=== PATIENT | female | born 1940 | race Caucasian/White ===

== ENCOUNTER 2017-04-11 14:01 | Emergency (ER) | payer OTHER, BC ==
[~2017-04-11] VITALS: Ht 165.1 cm; Wt 115.4 kg
[~2017-04-11 14:01] MED LIST: ASPIRIN81 M1 PO; CLOBETASOL PROP59 ML TP; FUROSEMIDE20 MG PO; K-Dur PO; K-TAB10 MEQ PO; KLOR-CON 1010 ME1 PO; LISINOPRIL-HCT1 EAC3 PO; LO-DOSE ASPIRIN81 M1 PO; LOVASTATIN40 MG PO; MEGA BIOTIN10000 MCG PO; METRO CREAM 0.745 GM TP; MULTIVITAMINS1 EAC2; NAPROXEN500 M1 PO; NEXIUM40 MG PO; PERCOCET 5/31 TABLET PO; PREMARIN0.3 MG PO; THERA TEARS30 ML BOTH EYES; Tears Naturale II,Ar BOTH EYES; ZOVIRAX 5% TP; ZOVIRAX OINTMEN15 GM TP; [UNRECOGNIZED DRUG - CODE] PO
[2017-04-11 14:07] VITALS: BP 138/68
[2017-04-11] MEDS ORDERED: NORCO 5/3251 TABLET PO (16:25)
[2017-04-11] MEDS ORDERED: LIDODERM 5% P1 PATCH TD (16:25)
[2017-04-11] MEDS ORDERED: FLEXERIL10 MG PO (16:25)
== END 2017-04-11 16:52 | disposition home or self-care (01) ==
LOC: EME 14:01
DX: M47.22 Other spondylosis with radiculopathy, cervical region (principal); I10 Essential (primary) hypertension; E78.00 Pure hypercholesterolemia, unspecified; Z79.82 Long term (current) use of aspirin
CPT/HCPCS: 72040; 99281; 99283; J1100

== ENCOUNTER → 2017-04-26 | Outpatient (CLI) | payer OTHER, BC ==
[~2017-04-26] MED LIST changes: +FLEXERIL10 MG PO; +LIDODERM 5% P1 PATCH TD; +NORCO 5/3251 TABLET PO
== END | disposition home or self-care (01) ==
DX: M17.11 Unilateral primary osteoarthritis, right knee (principal); R26.2 Difficulty in walking, not elsewhere classified; M25.561 Pain in right knee; M25.661 Stiffness of right knee, not elsewhere classified; M62.81 Muscle weakness (generalized)
CPT/HCPCS: 97110 GP; 97150 GO; 97161 GP; 97165 GO; G8978 GP; G8979 GP; G8980 GP; G8987 GO; G8988 GO; G8989 GO

== ENCOUNTER 2017-05-15 22:05 | Inpatient (IN) | payer OTHER, BC ==
[~2017-05-15] VITALS: Ht 165.1 cm; Wt 113.5 kg
[~2017-05-15 22:05] MED LIST changes: +DAILY MULTIPLE1 EACH PO; +ESTRADIOL0.5 MG PO; +IRON325 M1 PO; +METHOCARBAMOL500 MG PO; -MULTIVITAMINS1 EAC2; +TYLENOL EXTRA500 MG PO; +VOLTAREN 1% GE100 GM TP
[2017-05-16 09:26] VITALS: BP 127/58
[2017-05-16 14:49] LABS: HEMATOCRIT 28.3 % (36.0-46.0); MCH 28.2 PG (29.0-34.0); MCHC 32.9 G/DL (30.0-36.0); MCV 85.8 FL (83-99); PLATELET COUNT 324 K/uL (156-360); RBC DIS.WIDTH-SD 40.5 % (39-53); WHITE BLOOD COUNT 9.6 K/uL (4.1-10.2)
[2017-05-16 16:42] VITALS: BP 120/59
[2017-05-16 19:19] VITALS: BP 127/72
[2017-05-16 20:35] VITALS: BP 124/58
[2017-05-17 00:30] VITALS: BP 131/63
[2017-05-17 04:30] VITALS: BP 127/62
[2017-05-17 06:09] LABS: HEMATOCRIT 28.2 % (36.0-46.0); MCV 86.2 FL (83-99)
[2017-05-17 06:35] LABS: ANION GAP 10 MEQ/L (2-14); CHLORIDE 104 MEQ/L (99-109); GFR ESTIMATE (CALCULATED) 43 mL/min/; GLUCOSE 100 mg/dL (70-99); POTASSIUM 3.9 MEQ/L (3.7-5.4); SAMPLE HEMOLYSIS CHECK 0; SAMPLE ICTERIC CHECK 0; SAMPLE LIPEMIA CHECK 0; SODIUM 139 MEQ/L (136-147); UREA NITROGEN (BUN) 22 mg/dL (9-23)
[2017-05-17 11:57] VITALS: BP 146/65
[2017-05-17 15:46] VITALS: BP 134/62
[2017-05-17 20:00] VITALS: BP 119/56
[2017-05-18 00:30] VITALS: BP 122/58
[2017-05-18 04:00] VITALS: BP 115/57
[2017-05-18 06:23] LABS: HEMATOCRIT 28.2 % (36.0-46.0); MCV 85.5 FL (83-99)
[2017-05-18 06:51] LABS: ANION GAP 11 MEQ/L (2-14); CHLORIDE 102 MEQ/L (99-109); GFR ESTIMATE (CALCULATED) 31 mL/min/; GLUCOSE 95 mg/dL (70-99); POTASSIUM 4.2 MEQ/L (3.7-5.4); SAMPLE HEMOLYSIS CHECK 0; SAMPLE ICTERIC CHECK 0; SAMPLE LIPEMIA CHECK 0; SODIUM 135 MEQ/L (136-147); UREA NITROGEN (BUN) 25 mg/dL (9-23)
[2017-05-18 08:00] VITALS: BP 137/59
[2017-05-18 11:03] LABS: BASE EXCESS -2.8 mEq/L (-3 to +3); BICARBONATE 21.8 mEq/L (22-26); CARBOXY HGB 2.6 % (0-5); COMMENTS - BLOOD GASES A+C+; DEVICE RA; FI02 21 %; METHEMOGLOBIN 1.9 % (0-1.5); PCO2 36 mm Hg (35-45); PO2 54 mm Hg (80-100); SITE LRA; TOTAL RESP RATE 14 resp/min; pH 7.39 (7.35-7.45)
[2017-05-18 12:10] VITALS: BP 119/56
[2017-05-18 15:06] LABS: EOSINOPHIL (%) 1.4 % (0-5); EOSINOPHIL COUNT 0.2 K/uL (0-0.3); HEMATOCRIT 31.2 % (36.0-46.0); IMMATURE GRANULOCYTE (%) 0.4 % (0.0-0.7); IMMATURE GRANULOCYTE COUNT 0.1 K/uL; INSTRUMENT ABS NEUTROPHIL CT 10.9 K/uL; LYMPHOCYTE COUNT 2.4 K/uL (1.0-2.8); MCH 27.4 PG (29.0-34.0); MCHC 31.4 G/DL (30.0-36.0); MCV 87.2 FL (83-99); MONOCYTE (%) 9.2 % (3-12); MONOCYTE COUNT 1.4 K/uL (0-0.8); NEUTROPHIL (%) 72.4 % (45-76); NEUTROPHIL COUNT 10.9 K/uL (1.8-6.4); RBC DIS.WIDTH-CV 13.2 % (11.8-14.6); RBC DIS.WIDTH-SD 42.6 % (39-53); RED BLOOD COUNT 3.58 M/uL (3.80-5.20)
[2017-05-18 15:22] LABS: DIRECT BILIRUBIN 0.1 mg/dL (0.0-0.3); TOTAL BILIRUBIN 0.5 MG/DL (0.0-1.0)
[2017-05-18 15:28] LABS: ALKALINE PHOSPHATASE 81 IU/L (3-129)
[2017-05-18 15:32] LABS: ADD MIUA? YES; BILIRUBIN NEGATIVE; BLOOD NEGATIVE; COLOR YELLOW ((YELLOW)); GLUCOSE (STRIP) NEGATIVE; KETONES NEGATIVE; LEUKOCYTES MODERATE; NITRITE NEGATIVE; PROTEIN (STRIP) NEGATIVE; SPECIFIC GRAVITY 1.014 (1.000-1.030); UROBILINOGEN 0.2 MG/DL (0.2-1.0)
[2017-05-18 15:36] VITALS: BP 96/53
[2017-05-18 15:38] LABS: BACTERIA 1+ /HPF; EPITHELIAL CELLS 3+ /HPF; HYALINE CASTS 15-20 /LPF; MUCUS TRACE /LPF; RED BLOOD CELLS 0-5 /HPF (0-5); UCUL ADDED? YES; WHITE BLOOD CELLS 20-30 /HPF (0-5); WHITE BLOOD CELLS CLUMP RARE /HPF (0-5)
[2017-05-18 15:58] LABS: ABS NEUTROPHIL COUNT 12.5; ANISOCYTOSIS 2+; ATYPICAL LYMPHOCYTE 0.9 %; BURR CELLS 1+; EOSINOPHIL ABS CT 0.1; EOSINOPHILS 0.9 % (0-5.0); GIANT PLATELETS 1+; HYPOCHROMASIA 1+; LYMPHOCYTES 12.3 % (15.0-45.0); MACROCYTES 1+; MEAN PLAT.VOLUME 9.5 uM^3 (9.5-12.4); MICROCYTOSIS 2+; PLAT.SUFFICIENCY ADEQUATE; PLATELET COUNT 331 K/uL (156-360); POIKILOCYTOSIS 1+; POLYCHROMASIA 1+; SEG.NEUTROPHILS 62.3 % (46.0-76.0)
[2017-05-18 20:11] VITALS: BP 101/55
[2017-05-19 00:23] VITALS: BP 118/54
[2017-05-19 04:03] VITALS: BP 137/60
[2017-05-19 07:18] LABS: HEMATOCRIT 26.1 % (36.0-46.0); MCH 27.9 PG (29.0-34.0); MCV 84.7 FL (83-99); MEAN PLAT.VOLUME 9.7 uM^3 (9.5-12.4); PLATELET COUNT 336 K/uL (156-360); RBC DIS.WIDTH-CV 13.3 % (11.8-14.6); RBC DIS.WIDTH-SD 40.7 % (39-53); RED BLOOD COUNT 3.08 M/uL (3.80-5.20); WHITE BLOOD COUNT 12.3 K/uL (4.1-10.2)
[2017-05-19 07:39] LABS: ANION GAP 11 MEQ/L (2-14); CHLORIDE 102 MEQ/L (99-109); GFR ESTIMATE (CALCULATED) 27 mL/min/; GLUCOSE 116 mg/dL (70-99); POTASSIUM 3.8 MEQ/L (3.7-5.4); SAMPLE HEMOLYSIS CHECK 0; SAMPLE ICTERIC CHECK 0; SAMPLE LIPEMIA CHECK 0; SODIUM 135 MEQ/L (136-147); UREA NITROGEN (BUN) 28 mg/dL (9-23)
[2017-05-19 08:23] VITALS: BP 122/60
[2017-05-19 08:33] LABS: INTERNAL CONTROL VALID? YES
[2017-05-19] MEDS ORDERED: CELECOXIB200 MG PO (08:35)
[2017-05-19] MEDS ORDERED: SENNA PLUS TAB1 EACH PO (08:35)
[2017-05-19] MEDS ORDERED: LOVENOX40 MG/0.4 SC (08:35)
[2017-05-19] MEDS ORDERED: ENDOCET 5-3251 EACH PO (08:35)
[2017-05-19 11:38] VITALS: BP 124/59
[2017-05-19 15:44] VITALS: BP 114/59
[2017-05-19] MEDS ORDERED: AMOXICILLIN500 M1 PO (17:37)
== END 2017-05-19 19:04 | DRG 469 ==
LOC: ENRESERV 22:05 → 2SOUTH 05-16 08:37 → 3WEST 05-16 08:37 → 2SOUTH 05-16 10:48 → 3WEST 05-16 16:36 → ENRESERV 05-19 11:33 → CANRESERV 05-19 11:47 → ENRESERV 05-19 11:47 → 3WEST 05-19 19:04
PROVIDERS: Nurse Practitioner Adult Health; Orthopaedic Surgery; Physician Assistant
PROC: 0SRC0J9 Replacement of Right Knee Joint with Synthetic Substitute, Cemented, Open Approach (ICD-10-PCS; principal; 2017-05-16)
PROC: 5A09357 Assistance with Respiratory Ventilation, Less than 24 Consecutive Hours, Continuous Positive Airway Pressure (ICD-10-PCS; 2017-05-19)
DX: M17.11 Unilateral primary osteoarthritis, right knee (principal); A41.9 Sepsis, unspecified organism; J98.11 Atelectasis; J96.01 Acute respiratory failure with hypoxia; N28.9 Disorder of kidney and ureter, unspecified; N18.3 Chronic kidney disease, stage 3 (moderate); G47.33 Obstructive sleep apnea (adult) (pediatric); I12.9 Hypertensive chronic kidney disease with stage 1 through stage 4 chronic kidney disease, or unspecified chronic kidney disease; E78.00 Pure hypercholesterolemia, unspecified; E78.5 Hyperlipidemia, unspecified; K21.9 Gastro-esophageal reflux disease without esophagitis; E66.9 Obesity, unspecified; Z68.41 Body mass index [BMI] 40.0-44.9, adult; D64.9 Anemia, unspecified
CPT/HCPCS: 36600; 71010; 71020; 73560; 78582; 80048; 80076; 81003; 82803; 83605; 85014; 85018; 85025; 85027; 87040; 87070; 87086; 87205; 87449; 93971; A9540; A9567; C1713; J0690; J1170; J1650; J2250; J2405; J2543; J7030; J7040; J7050

== ENCOUNTER 2018-04-26 09:34 | Inpatient (IN) | payer OTHER, BC ==
[~2018-04-26] VITALS: Ht 163.8 cm; Wt 113.5 kg
[~2018-04-26 09:34] MED LIST changes: +AMOXICILLIN500 M1 PO; +CELECOXIB200 MG PO; +ENDOCET 5-3251 EACH PO; +LOVENOX40 MG/0.4 SC; +SENNA PLUS TAB1 EACH PO
[2018-04-26 10:06] LABS: BASOPHIL (%) 0.3 % (0-1); EOSINOPHIL (%) 0.2 % (0-5); HEMATOCRIT 37.6 % (36.0-46.0); HEMOGLOBIN 12.6 G/DL (11.9-15.5); IMMATURE GRANULOCYTE (%) 0.3 % (0.0-0.7); LYMPHOCYTE (%) 22.9 % (15-42); LYMPHOCYTE COUNT 2.9 K/uL (1.0-2.8); MCH 28.5 PG (29.0-34.0); MCHC 33.5 G/DL (30.0-36.0); MCV 85.1 FL (83-99); MONOCYTE (%) 4.2 % (3-12); MONOCYTE COUNT 0.5 K/uL (0-0.8); NEUTROPHIL (%) 72.1 % (45-76); PLATELET COUNT 301 K/uL (156-360); RBC DIS.WIDTH-CV 13.2 % (11.8-14.6); RBC DIS.WIDTH-SD 41.1 % (39-53); RED BLOOD COUNT 4.42 M/uL (3.80-5.20); WHITE BLOOD COUNT 12.5 K/uL (4.1-10.2)
[2018-04-26 10:19] LABS: ALBUMIN 4.4 g/dL (3.2-4.8); CHLORIDE 102 mEq/L (99-109); POTASSIUM 3.6 mEq/L (3.7-5.4); SODIUM 139 mEq/L (136-147)
[2018-04-26 10:21] LABS: GLUCOSE 124 mg/dL (70-99); TOTAL PROTEIN 7.2 g/dL (6.4-8.3)
[2018-04-26 10:23] LABS: TOTAL BILIRUBIN 0.3 mg/dL (0.0-1.0)
[2018-04-26 10:25] LABS: ALKALINE PHOSPHATASE 79 IU/L (3-129); CREATININE 1.2 mg/dL (0.6-1.3); GFR ESTIMATE (CALCULATED) 47 mL/min/
[2018-04-26 10:26] LABS: AST (GOT) 20 IU/L (2-34); UREA NITROGEN (BUN) 20 mg/dL (9-23)
[2018-04-26 10:28] LABS: ALT (GPT) 12 IU/L (3-49); LIPASE 15 U/L (1.0-51.0)
[2018-04-26 10:29] LABS: TROP-I INTERPRETATION NEGATIVE; TROPONIN-I < 0.01 ng/mL (0.0-0.30)
[2018-04-26 12:45] LABS: TROP-I INTERPRETATION NEGATIVE; TROPONIN-I < 0.01 ng/mL (0.0-0.30)
[2018-04-26] MEDS ORDERED: LORTAB 5-325 M1 EACH PO (15:18)
[2018-04-26] MEDS ORDERED: NAPROXEN500 MG PO (15:18)
[2018-04-26] MEDS ORDERED: SENNA PLUS TAB1 EACH PO (15:30)
[2018-04-26 17:06] VITALS: BP 180/86
[2018-04-26 23:22] VITALS: BP 142/65
[2018-04-27 03:56] VITALS: BP 149/67
[2018-04-27 05:45] LABS: HEMATOCRIT 34.7 % (36.0-46.0); MCH 27.8 PG (29.0-34.0); MCHC 31.7 G/DL (30.0-36.0); MCV 87.8 FL (83-99); PLATELET COUNT 305 K/uL (156-360); RBC DIS.WIDTH-CV 13.2 % (11.8-14.6); RBC DIS.WIDTH-SD 43.5 % (39-53); RED BLOOD COUNT 3.95 M/uL (3.80-5.20); WHITE BLOOD COUNT 14.1 K/uL (4.1-10.2)
[2018-04-27 06:12] LABS: CHLORIDE 102 MEQ/L (99-109); CREATININE 1.1 MG/DL (0.6-1.3); GFR ESTIMATE (CALCULATED) 51 mL/min/; GLUCOSE 100 mg/dL (70-99); POTASSIUM 3.4 MEQ/L (3.7-5.4); SODIUM 140 MEQ/L (136-147); UREA NITROGEN (BUN) 17 mg/dL (9-23)
[2018-04-27 07:49] VITALS: BP 145/66
[2018-04-27 15:29] VITALS: BP 146/65
[2018-04-27 15:51] LABS: CHLORIDE 103 MEQ/L (99-109); GFR ESTIMATE (CALCULATED) 57 mL/min/; GLUCOSE 115 mg/dL (70-99); POTASSIUM 3.5 MEQ/L (3.7-5.4); SODIUM 141 MEQ/L (136-147); UREA NITROGEN (BUN) 14 mg/dL (9-23)
[2018-04-27 19:15] VITALS: BP 158/69
[2018-04-28 00:09] VITALS: BP 146/65
[2018-04-28 04:00] VITALS: BP 132/62
[2018-04-28 05:45] LABS: HEMATOCRIT 33.7 % (36.0-46.0); MCH 28.3 PG (29.0-34.0); MCHC 32.6 G/DL (30.0-36.0); MCV 86.6 FL (83-99); PLATELET COUNT 284 K/uL (156-360); RBC DIS.WIDTH-CV 13.1 % (11.8-14.6); RBC DIS.WIDTH-SD 41.1 % (39-53); RED BLOOD COUNT 3.89 M/uL (3.80-5.20); WHITE BLOOD COUNT 13.4 K/uL (4.1-10.2)
[2018-04-28 06:11] LABS: ALBUMIN 3.5 G/DL (3.2-4.8); ALKALINE PHOSPHATASE 62 IU/L (3-129); ALT (GPT) 16 IU/L (3-49); AST (GOT) 23 IU/L (2-34); CHLORIDE 105 MEQ/L (99-109); CREATININE 1.1 MG/DL (0.6-1.3); GFR ESTIMATE (CALCULATED) 51 mL/min/; GLUCOSE 104 mg/dL (70-99); POTASSIUM 3.6 MEQ/L (3.7-5.4); SODIUM 140 MEQ/L (136-147); TOTAL BILIRUBIN 0.4 MG/DL (0.0-1.0); TOTAL PROTEIN 5.7 G/DL (6.4-8.3); UREA NITROGEN (BUN) 14 mg/dL (9-23)
[2018-04-28 08:14] VITALS: BP 156/67
== END 2018-04-28 17:04 | disposition home or self-care (01) | DRG 392 ==
LOC: EME 09:34 → EDOF 15:21 → 4SOUTH 15:21 → ENRESERV 15:52 → 4SOUTH 16:58
PROVIDERS: Emergency Medicine; Internal Medicine
DX: R10.13 Epigastric pain (principal); Z68.41 Body mass index [BMI] 40.0-44.9, adult; R10.9 Unspecified abdominal pain; I10 Essential (primary) hypertension; R10.32 Left lower quadrant pain; K21.9 Gastro-esophageal reflux disease without esophagitis; E78.5 Hyperlipidemia, unspecified; G47.30 Sleep apnea, unspecified; K59.09 Other constipation; L40.50 Arthropathic psoriasis, unspecified; D72.829 Elevated white blood cell count, unspecified; L71.9 Rosacea, unspecified; M19.90 Unspecified osteoarthritis, unspecified site; N28.9 Disorder of kidney and ureter, unspecified; Z96.642 Presence of left artificial hip joint; E66.01 Morbid (severe) obesity due to excess calories; Z87.11 Personal history of peptic ulcer disease; Z90.710 Acquired absence of both cervix and uterus; Z85.828 Personal history of other malignant neoplasm of skin; Z82.5 Family history of asthma and other chronic lower respiratory diseases; Z82.49 Family history of ischemic heart disease and other diseases of the circulatory system
CPT/HCPCS: 71045; 74177; 74183; 74185; 78226; 80048; 80048 91; 80053; 83605; 83690; 84484; 85025; 85027; 87040; 93005; A9537; J1650; J2270; J2405; J2765; J3010; J7030; S0030